=== PATIENT | female | born 1955 | race Caucasian/White ===

== ENCOUNTER 2018-05-30 13:36 | Day surgery (SDC) | payer MEDICARE ==
[~2018-05-30] VITALS: Ht 157.5 cm; Wt 117.3 kg
--- NOTE | ~2018-05-30 | OP ---
PATIENT NAME: EDUARDO BROWN MEDICAL RECORD: [id number] :55 LOCATION:[facility] ADMISSION DATE: SURGEON: JANE AC MD DATE OF OPERATION: 05/30/2018 PROCEDURE: EGD with biopsy. GREASE MAKER HEAD: Jane Ac MD SCOPE: Olympus video gastroscope. MEDICATIONS: Per TIVA. The patient received 300 mg of propofol for this procedure, O2 4 liters. INDICATION FOR THE PROCEDURE: Gastroesophageal reflux disease. FINDINGS: Informed consent was given. The patient was made comfortable with the above medications. After reaching an adequate level of sedation by slow IV push, the patient was placed on her left side. The endoscope was then advanced under direct visualization through the posterior pharyngeal area and advanced to the distal esophagus. At the distal esophageal area, erosions were appreciated and biopsies were obtained. No ulcers were seen. A hiatal hernia of a moderate size was seen both on direct and retroflex views. On entering the stomach, mild to moderate inflammation was appreciated. In the stomach body, a 0.5 cm polyp was biopsied and another polyp within the pyloric channel approximately 1 cm in size was seen and biopsied. The duodenal bulb had fairly normal tissue. The second portion had mild inflammation and we did obtain some biopsies. Of interest, the patient did bleed with all biopsies, but this did coagulate in less than 8 minutes. IMPRESSION: 1. Erosive esophagitis due to gastroesophageal reflux disease. 2. Moderate sized hiatal hernia. 3. Mild gastritis. 4. Biopsy of a polyp, 0.5 cm within the stomach body. 5. Polyp biopsied in the antral area, 1 cm in size. This was within the pyloric channel. 6. Mild duodenitis, biopsied. PLAN: 1. Protonix 40 mg p.o. q.a.m. and famotidine 20 mg q.h.s. 2. Continue Carafate at 1 gram p.o. b.i.d. 3. The patient is to follow reflux precautions stringently, both dietary and positional. No chocolate, tomato, citrus, caffeine, fatty foods, peppermint, not eat late at night, and sit up for a couple hours after meals. Should these refluxing problems persist despite positional and dietary changes in medications, we will then refer the patient to a surgeon for an antireflux procedure. TRANSINT:[id number] Voice Confirmation ID: [id number] DOCUMENT ID: [id number] OPERATIVE REPORT [id number] EDUARDO BROWN BRENDA MD at 1215 CC: KEVIN VERA [id number] DICTATION DATE: 05/30/18 1601 PHYSICAL THERAPY NURSE: 05/30/18 1612 [facility] [place] 05/30/18 [place] [id number]
[2018-05-30 13:56] LABS: HEMATOCRIT 38.9 % (36.0-48.0); HEMOGLOBIN 12.7 g/dL (12-16); MCH 27.6 pg (26.0-34.0); MCHC 32.6 g/dL (31.0-37.0); MCV 84.6 fL (80.0-100.0); MEAN PLATELET VOLUME 9.9 fL (7.4-10.4); RBC 4.6 10x6/uL (4.00-5.40); RDW 15.9 % (11.5-14.5); WBC 5.6 10x3/uL (4.8-10.8)
[2018-05-30] MEDS ORDERED: FUROSEMIDE20 MG PO (14:38)
[2018-05-30] MEDS ORDERED: PRINZIDE 20/12.1 TA1 PO (14:41)
[2018-05-30] MEDS ORDERED: GABAPENTIN100 MG PO (14:45)
[2018-05-30] MEDS ORDERED: CARAFATE1 G PO (14:46)
[2018-05-30] MEDS ORDERED: PROTONIX40 MG PO (14:47)
[2018-05-30] MEDS ORDERED: ASPIRIN81 MG PO (14:49)
[2018-05-30] MEDS ORDERED: CALCIUM 600 +1 EAC3 PO (14:51)
[2018-05-30] MEDS ORDERED: LIPITOR10 MG PO (14:54)
[2018-05-30] MEDS ORDERED: BACLOFEN10 MG PO (14:54)
[2018-05-30 15:10] VITALS: BP 153/77; Ht 157.5 cm; Wt 117.3 kg
== END 2018-05-30 17:15 | disposition home or self-care (01) ==
LOC: D.OPS 13:36
PROVIDERS: Anesthesiology
DX: K21.0 Gastro-esophageal reflux disease with esophagitis (principal); K44.9 Diaphragmatic hernia without obstruction or gangrene; K22.10 Ulcer of esophagus without bleeding; K29.70 Gastritis, unspecified, without bleeding; K31.7 Polyp of stomach and duodenum; K29.80 Duodenitis without bleeding; Z01.812 Encounter for preprocedural laboratory examination

== ENCOUNTER 2018-07-25 12:38 | Day surgery (SDC) | payer MEDICARE ==
[~2018-07-25] VITALS: Ht 157.5 cm; Wt 108.2 kg
--- NOTE | ~2018-07-25 | OP ---
PATIENT NAME: EDUARDO BROWN MEDICAL RECORD: [id number] :55 [facility] DATE: SURGEON: JANE AC MD DATE OF OPERATION: 07/25/2018 PROCEDURE: Colonoscopy with biopsy. MASTER OCEAN YACHT: Jane Ac MD SCOPE: Olympus video gastroscope. MEDICATIONS: Per TIVA anesthesia. The patient received 260 mg of propofol for this procedure, O2 at 4 liters. INDICATION FOR THE PROCEDURE: Guaiac-positive stool. Of note, this is the patient's first colonoscopy. FINDINGS: Informed consent was given. The patient was made comfortable with the above medications. After reaching an adequate level of sedation by slow IV push, the patient was placed on her left side. The rectal exam revealed good sphincter tone. No fissures or fistulas were appreciated. No external skin tags were seen. The colonoscope was advanced to the cecum, where the ileocecal valve and the appendiceal orifice were identified. On withdrawal of the scope, mucosa was carefully inspected. Mucosa was normal until reaching the left side of the colon, where [id number] left-sided diverticulosis without diverticulitis was appreciated. On additional withdrawal of the scope and at 15 cm within the distal sigmoid area, a very localized section of some bowel wall erythema and mild edema was appreciated and biopsies were obtained. This could be due to anti-inflammatory drug use or perhaps the prep. On retroflexion and final withdrawal of the scope, minimal hemorrhoids were noted. IMPRESSION: 1. Normal right side of the colon, specifically normal cecum and appendiceal orifice. 2. Moderate left-sided diverticulosis without diverticulitis. 3. A very small localized area of inflammation at 15 cm within the colon. Biopsies were obtained. This certainly could be due to the prep or perhaps nonsteroidal anti-inflammatory drug use. These biopsies were sent to the pathology department for review. 4. Very mild internal hemorrhoids. 5. Spasm associated with irritable bowel syndrome, most pronounced on the left side of the colon. 6. Adhesions in the pelvic area due to previous abdominal surgeries. PLAN: 1. No aspirin and no anti-inflammatory drugs if possible for 14 days. 2. High-fiber diet. 3. Return to clinic on a p.r.n. basis. 4. The patient will be instructed to take probiotics. TRANSINT:[id number] Voice Confirmation ID: [id number] DOCUMENT ID: [id number] OPERATIVE REPORT [id number] EDUARDO BROWN BRENDA MD CC: KEVIN VERA [id number] DICTATION DATE: 07/25/18 1508 TOUCH UP WORKER: 07/25/18 1708 [facility] [place] 07/25/18 [place] [id number] [place] [id number]
[~2018-07-25 12:38] MED LIST: ASPIRIN81 MG PO; BACLOFEN10 MG PO; CALCIUM 600 +1 EAC3 PO; CARAFATE1 G PO; FUROSEMIDE20 MG PO; GABAPENTIN100 MG PO; LIPITOR10 MG PO; PRINZIDE 20/12.1 TA1 PO; PROTONIX40 MG PO
[2018-07-25 13:21] VITALS: BP 134/78; Ht 157.5 cm; Wt 108.2 kg
[2018-07-25 14:24] LABS: HEMATOCRIT 43.7 % (36.0-48.0); HEMOGLOBIN 14.6 g/dL (12-16); MCH 28.8 pg (26.0-34.0); MCHC 33.4 g/dL (31.0-37.0); MCV 86.2 fL (80.0-100.0); MEAN PLATELET VOLUME 11.9 fL (7.4-10.4); RBC 5.07 10x6/uL (4.00-5.40); RDW 16.9 % (11.5-14.5); WBC 7.6 10x3/uL (4.8-10.8)
== END 2018-07-25 15:52 | disposition home or self-care (01) ==
LOC: D.OPS 12:38
PROVIDERS: Anesthesiology
DX: K57.30 Diverticulosis of large intestine without perforation or abscess without bleeding (principal); K64.8 Other hemorrhoids; K58.9 Irritable bowel syndrome, unspecified; K52.9 Noninfective gastroenteritis and colitis, unspecified; Z01.812 Encounter for preprocedural laboratory examination